=== PATIENT | female | born 1985 | race American Indian/Alaskan Native ===

== ENCOUNTER 2018-07-25 02:17 | Emergency (ER) | payer OTHER ==
[2018-07-25] MEDS ORDERED: TORADOL IM ONE (08:57)
[2018-07-25] MEDS ORDERED: ZOFRAN ODT PO ONE (08:58)
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
[2018-07-25 09:21] VITALS: BP 118/82
--- NOTE | 2018-07-25 10:00 | XRay Report ---
AP AND LATERAL LUMBOSACRAL SPINE: History: Low back pain The vertebral bodies are well mineralized and normal in alignment and vertebral height with well preserved interspace distances. The visualized portions of the posterior elements are normal. IMPRESSION: Normal study.
--- NOTE | 2018-07-25 10:00 | XRay Report ---
AP AND LATERAL CERVICAL SPINE: History: Neck pain. The vertebral bodies are well mineralized and normal in alignment and vertebral height with well preserved interspace distances. The visualized portions of the posterior elements are normal. IMPRESSION: Normal study.
== END 2018-07-25 12:04 | disposition home or self-care (01) ==
LOC: ED 02:17
DX: S16.1XXA Strain of muscle, fascia and tendon at neck level, initial encounter (principal); S39.012A Strain of muscle, fascia and tendon of lower back, initial encounter; G43.909 Migraine, unspecified, not intractable, without status migrainosus; Z91.040 Latex allergy status; V89.2XXA Person injured in unspecified motor-vehicle accident, traffic, initial encounter; Y93.89 Activity, other specified; Y92.411 Interstate highway as the place of occurrence of the external cause; Y99.8 Other external cause status
CPT/HCPCS: 72040; 72100; 96372; 99283; J1885; Q0162